=== PATIENT | male | born 1950 | race Caucasian/White ===

== ENCOUNTER 2023-02-15 06:47 | Day surgery (SDC) | payer MEDICARE, OTHER ==
[~2023-02-15] VITALS: Ht 167.6 cm; Wt 74.1 kg
[~2023-02-15 06:47] MED LIST: ATOR80TA59 PO; CLOP75TA2 PO; ECOT81TA5 PO; JARD1TAB3 PO; LISI10TA22 PO; LISI20TA33 PO; MECL1TAB31 PO; MULTTAB23 PO; NESI25TA PO; NS 1,000 ML IV ONE; OCUVTAB PO; OMEP1CAP73 PO; SEMA0.257 SQ; SIMV20TA22 PO; VITMTA PO
[2023-02-15] MEDS ORDERED: fentaNYL 100 MCG/2 ML INJECTION As Ordered ONE (07:19)
[2023-02-15] MEDS ORDERED: propofoL 500 MG/50 ML VIAL As Ordered ONE (07:19)
[2023-02-15] MEDS ORDERED: LIDOCAINE 2% 100MG/5ML SDV (FOR ANES.) As Ordered ONE (07:19)
[2023-02-15] MEDS ORDERED: ePHEDrine SULFATE 25 MG/5 ML(5MG/ML) SYRINGE As Ordered ONE (08:29)
[2023-02-15 08:45] VITALS: TEMP 97.4
[2023-02-15 09:14] VITALS: BP 142/74; O2SAT 98
== END 2023-02-15 17:20 | disposition home or self-care (01) ==
LOC: M ADMPAT 06:47
PROVIDERS: ATTEND Internal Medicine Gastroenterology
DX: Z12.11 Encounter for screening for malignant neoplasm of colon (principal); K64.4 Residual hemorrhoidal skin tags; K64.8 Other hemorrhoids; K57.30 Diverticulosis of large intestine without perforation or abscess without bleeding; K29.70 Gastritis, unspecified, without bleeding; K44.9 Diaphragmatic hernia without obstruction or gangrene; K21.00 Gastro-esophageal reflux disease with esophagitis, without bleeding; Z79.02 Long term (current) use of antithrombotics/antiplatelets; Z79.82 Long term (current) use of aspirin; Z79.84 Long term (current) use of oral hypoglycemic drugs; Z79.899 Other long term (current) drug therapy; Z88.5 Allergy status to narcotic agent
CPT/HCPCS: 43239; 88305; G0121; J3010

== ENCOUNTER 2023-08-13 06:43 | Day surgery (SDC) | payer MEDICARE, OTHER ==
[~2023-08-13] VITALS: Ht 167.6 cm; Wt 73.3 kg
[~2023-08-13 06:43] MED LIST changes: +CYCLOPENTOLATE 1% OPHTH SOLN 2ML BTL OD SCH; +FLURBIPROFEN 0.03% OPHTH SOLN 2.5 ML OD SCH; +MECL-209 PO; -MECL1TAB31 PO; -NS 1,000 ML IV ONE; +PHENYLEPHRINE 2.5% OPHTH SOL 2ML OD SCH; +SYNJ1TAB13 PO; +TETRACAINE 0.5% OPHTH SOLN 4ML OD SCH
[2023-08-13] MEDS ORDERED: CEFUROXIME 1MG/0.1ML INTRACAMERAL INJ As Ordered ONE (06:46)
[2023-08-13] MEDS ORDERED: LIDOCAINE 1% SDV 5ML VIAL As Ordered ONE (06:46)
[2023-08-13] MEDS ORDERED: LR 1,000 ML IV SCH (07:00)
[2023-08-13] MEDS ORDERED: MIDAZOLAM INJ 2MG/2ML VIAL As Ordered ONE (07:23)
[2023-08-13] MEDS ORDERED: INSULIN LISPRO (NovoLOG) PER UNIT SC PRN (07:30)
[2023-08-13 09:34] VITALS: BP 180/86; TEMP 97.2; O2SAT 97
== END 2023-08-13 09:50 | disposition home or self-care (01) ==
LOC: M SDC 06:43
PROVIDERS: ATTEND Ophthalmology
DX: H25.11 Age-related nuclear cataract, right eye (principal); I25.10 Atherosclerotic heart disease of native coronary artery without angina pectoris; I25.2 Old myocardial infarction; I10 Essential (primary) hypertension; K21.9 Gastro-esophageal reflux disease without esophagitis; E11.9 Type 2 diabetes mellitus without complications; E78.5 Hyperlipidemia, unspecified; Z79.899 Other long term (current) drug therapy; Z86.73 Personal history of transient ischemic attack (TIA), and cerebral infarction without residual deficits; R91.1 Solitary pulmonary nodule; Z79.02 Long term (current) use of antithrombotics/antiplatelets; Z88.5 Allergy status to narcotic agent
CPT/HCPCS: 66984; J0697; J2250; V2632

== ENCOUNTER 2023-09-17 08:57 | Day surgery (SDC) | payer OTHER, MEDICARE ==
[~2023-09-17] VITALS: Ht 167.6 cm; Wt 73.1 kg
[~2023-09-17 08:57] MED LIST changes: +CEFUROXIME 1MG/0.1ML INTRACAMERAL INJ As Ordered ONE; +CETI-24 PO; -CYCLOPENTOLATE 1% OPHTH SOLN 2ML BTL OD SCH; +CYCLOPENTOLATE 1% OPHTH SOLN 2ML BTL OS SCH; -FLURBIPROFEN 0.03% OPHTH SOLN 2.5 ML OD SCH; +FLURBIPROFEN 0.03% OPHTH SOLN 2.5 ML OS SCH; +LIDOCAINE 1% SDV 5ML VIAL As Ordered ONE; +LR 1,000 ML IV SCH; +MECL-86 PO; -PHENYLEPHRINE 2.5% OPHTH SOL 2ML OD SCH; +PHENYLEPHRINE 2.5% OPHTH SOL 2ML OS SCH; -TETRACAINE 0.5% OPHTH SOLN 4ML OD SCH; +TETRACAINE 0.5% OPHTH SOLN 4ML OS SCH
[2023-09-17] MEDS ORDERED: MIDAZOLAM INJ 2MG/2ML VIAL As Ordered ONE (10:44)
[2023-09-17] MEDS ORDERED: INSULIN LISPRO (NovoLOG) PER UNIT SC PRN (10:55)
[2023-09-17 12:30] VITALS: BP 149/82; TEMP 97.7; O2SAT 99
== END 2023-09-17 12:50 | disposition home or self-care (01) ==
LOC: M SDC 08:57
PROVIDERS: ATTEND Ophthalmology
DX: H25.12 Age-related nuclear cataract, left eye (principal); I25.10 Atherosclerotic heart disease of native coronary artery without angina pectoris; I10 Essential (primary) hypertension; E11.9 Type 2 diabetes mellitus without complications; E78.5 Hyperlipidemia, unspecified; R91.1 Solitary pulmonary nodule; Z86.73 Personal history of transient ischemic attack (TIA), and cerebral infarction without residual deficits; K21.9 Gastro-esophageal reflux disease without esophagitis; Z79.02 Long term (current) use of antithrombotics/antiplatelets; Z79.82 Long term (current) use of aspirin; Z79.899 Other long term (current) drug therapy
CPT/HCPCS: 66984; J0697; J2250; V2632

== ENCOUNTER → 2024-11-07 | Outpatient (CLI) | payer MEDICARE, OTHER ==
[~2024-11-07] MED LIST changes: -CEFUROXIME 1MG/0.1ML INTRACAMERAL INJ As Ordered ONE; -CYCLOPENTOLATE 1% OPHTH SOLN 2ML BTL OS SCH; -FLURBIPROFEN 0.03% OPHTH SOLN 2.5 ML OS SCH; -LIDOCAINE 1% SDV 5ML VIAL As Ordered ONE; -LR 1,000 ML IV SCH; -PHENYLEPHRINE 2.5% OPHTH SOL 2ML OS SCH; -TETRACAINE 0.5% OPHTH SOLN 4ML OS SCH
== END ==
LOC: M SOG 10:38
PROVIDERS: ATTEND Physician Assistant
DX: M25.562 Pain in left knee (principal)

== ENCOUNTER → 2024-11-07 | Outpatient (CLI) | payer MEDICARE, OTHER ==
[2024-11-07 12:37] LABS: HEMATOCRIT 38.1 % (42.0-52.0); HEMOGLOBIN 12.3 g/dl (13.5-17.5); MEAN CORPUSCULAR HEMOGLOBIN 29.9 pg (27.0-33.0); MEAN CORPUSCULAR HGB CONC 32.3 g/dl (32.0-36.5); MEAN CORPUSCULAR VOLUME 92.5 fl (80.0-96.0); PLATELET COUNT, AUTOMATED 253 10^3/uL (150-450); RED BLOOD COUNT 4.12 10^6/uL (4.30-6.10); WHITE BLOOD COUNT 5.4 10^3/uL (4.0-10.0)
[2024-11-07 12:45] LABS: ERYTHROCYTE SEDIMENTATION RATE 6 mm/hr (0-20)
[2024-11-07 13:15] LABS: HEMOGLOBIN A1c 7.8 % (4.0-6.0)
== END ==
LOC: M LAB 11:56
PROVIDERS: ATTEND Physician Assistant
DX: M25.562 Pain in left knee (principal)

== ENCOUNTER 2024-12-30 06:32 | Day surgery (SDC) | payer MEDICARE, OTHER ==
[~2024-12-30] VITALS: Ht 167.6 cm; Wt 69.5 kg
[~2024-12-30 06:32] MED LIST changes: +NOVOINJ3 SC; +THERTAB52 PO; +[UNRECOGNIZED DRUG - CODE] PO; +glargine insulin SC
[2024-12-30] MEDS ORDERED: LR 1,000 ML IV SCH ×2 (07:55→10:45)
[2024-12-30] MEDS ORDERED: ACETAMINOPHEN 1000MG/100ML IV BAG As Ordered ONE (08:03)
[2024-12-30] MEDS ORDERED: KETOROLAC 30 MG/ML 1ML VIAL As Ordered ONE (08:03)
[2024-12-30] MEDS ORDERED: propofoL 200 MG/20 ML VIAL As Ordered ONE (08:03)
[2024-12-30] MEDS ORDERED: LIDOCAINE 2% 100MG/5ML SDV (FOR ANES.) As Ordered ONE (08:03)
[2024-12-30] MEDS ORDERED: ONDANSETRON 4MG 2ML VIAL As Ordered ONE (08:03)
[2024-12-30] MEDS ORDERED: fentaNYL 100 MCG/2 ML INJECTION As Ordered ONE (08:07)
[2024-12-30] MEDS ORDERED: MIDAZOLAM INJ 2MG/2ML VIAL As Ordered ONE (08:07)
[2024-12-30] MEDS: EPINEPHrine 1MG/ML INJ 30ML MD-VIAL As Ordered ONE (08:46)
[2024-12-30] MEDS: ceFAZolin SOD 2 GM IV ONCE IV ONE (09:15)
[2024-12-30] MEDS ORDERED: PHENYLephrine 500MCG 5ML (100MCG/ML) SYRINGE As Ordered ONE (09:22)
[2024-12-30] MEDS ORDERED: ePHEDrine SULFATE 25 MG/5 ML(5MG/ML) SYRINGE As Ordered ONE (09:22)
[2024-12-30] MEDS ORDERED: GLYCOPYRROLATE INJ 0.2 MG/ML 2 ML VIAL As Ordered ONE (09:43)
[2024-12-30] MEDS ORDERED: HYDROmorphone HCL 2MG/ML 1ML VIAL As Ordered ONE (09:46)
[2024-12-30] MEDS: LIDOCAINE W/EPINEPHRINE 1% 20ML VIAL As Ordered ONE (09:47)
[2024-12-30] MEDS: MORPHINE 10 MG/ML 1ML VIAL As Ordered ONE (10:44)
[2024-12-30] MEDS ORDERED: fentaNYL 100 MCG/2 ML INJECTION IV PRN (10:45)
[2024-12-30] MEDS ORDERED: ONDANSETRON 4MG 2ML VIAL IV PRN (10:45)
[2024-12-30] MEDS ORDERED: oxyCODONE 5MG TAB PO PRN (10:45)
[2024-12-30] MEDS ORDERED: HYDROMORPHONE HCL 0.5 MG/ 0.5 ML SYRINGE IV PRN (10:45)
[2024-12-30] MEDS ORDERED: ASPI81CH33 PO (11:15)
[2024-12-30] MEDS ORDERED: CEPH500C PO (11:15)
[2024-12-30] MEDS ORDERED: HYDR-3713 PO (11:15)
[2024-12-30 11:52] VITALS: BP 169/79; TEMP 97.7; O2SAT 98
== END 2024-12-30 12:27 | disposition home or self-care (01) ==
LOC: M SDC 06:32
PROVIDERS: ATTEND Neuromusculoskeletal Medicine, Sports Medicine
DX: M67.862 Other specified disorders of synovium, left knee (principal); M24.562 Contracture, left knee; I25.10 Atherosclerotic heart disease of native coronary artery without angina pectoris; I10 Essential (primary) hypertension; E78.5 Hyperlipidemia, unspecified; E11.9 Type 2 diabetes mellitus without complications; Z79.4 Long term (current) use of insulin; K21.9 Gastro-esophageal reflux disease without esophagitis; Z86.73 Personal history of transient ischemic attack (TIA), and cerebral infarction without residual deficits; Z95.1 Presence of aortocoronary bypass graft; Z79.899 Other long term (current) drug therapy; Z79.02 Long term (current) use of antithrombotics/antiplatelets; Z79.84 Long term (current) use of oral hypoglycemic drugs; Z88.8 Allergy status to other drugs, medicaments and biological substances
CPT/HCPCS: 29877; 87070; 87075; J0131; J0665; J0690; J1100; J1171; J1596; J1885; J2250; J2371; J2405; J3010